=== PATIENT | female | born 1985 | race Caucasian/White ===

== ENCOUNTER 2023-12-25 09:38 | Day surgery (SDC) | payer BC ==
[2023-12-19 13:39] LABS: BASOPHILS # (AUTO) 0.1 K/uL (0.0-0.2); EOSINOPHILS # (AUTO) 0.2 K/uL (0.0-0.4); EOSINOPHILS % (AUTO) 2.2 % (0.0-4.0); HEMATOCRIT 41.7 % (36-48); HEMOGLOBIN 14.4 g/dL (12.0-16.0); LYMPHOCYTES # (AUTO) 2.3 K/uL (1.0-5.5); LYMPHOCYTES % (AUTO) 26.8 % (20.5-51.5); MEAN CORPUSCULAR HEMOGLOBIN 30 pg (27-31); MEAN CORPUSCULAR HGB CONC 35 % (32-36); MEAN CORPUSCULAR VOLUME 88 fL (79.0-98.0); MONOCYTES # (AUTO) 0.7 K/uL (0.0-1.0); NEUTROPHILS # (AUTO) 5.2 K/uL (1.8-7.7); PLATELET COUNT (AUTO) 286 K/uL (130-430); RED BLOOD CELL COUNT(AUTO) 4.77 MIL/uL (4.2-6.2); RED CELL DISTRIBUTION WIDTH 13.6 % (9.0-15.0); WHITE BLOOD COUNT (AUTO) 8.4 K/uL (4.8-10.8)
[2023-12-19 14:29] LABS: CALCIUM 9.3 mg/dL (8.4-11.0); CREATININE 0.71 mg/dL (0.55-1.30); POTASSIUM 3.7 mmol/L (3.5-5.1); TOTAL BILIRUBIN 0.6 mg/dL (0.0-1.0); TOTAL PROTEIN, SERUM 7.5 g/dL (6.4-8.3)
[~2023-12-25] VITALS: Ht 154.9 cm; Wt 81.6 kg
[2023-12-25 10:50] LABS: HCG,QUAL RESULT NEGATIVE (NEGATIVE)
[2023-12-25] MEDS ORDERED: ACETAMINOPHEN I.V. 1000 MG 100 ML IV ONE (11:40)
[2023-12-25] MEDS ORDERED: fentaNYL CITRATE/PF 100 MCG/2 ML AMP ONE (11:40)
[2023-12-25] MEDS ORDERED: MIDAZOLAM HCL 2 MG/2 ML VIAL (VERSED) ONE (11:40)
[2023-12-25] MEDS ORDERED: ONDANSETRON HCL 4 MG/2 ML VIAL ONE (11:43)
[2023-12-25] MEDS ORDERED: SEVOFLURANE 15 MIN GAS INH ONE (11:43)
[2023-12-25] MEDS ORDERED: LR 1,000 ML IV.SOLN IV ONE (11:43)
[2023-12-25] MEDS ORDERED: PROPOFOL 200MG/ 20ML VIAL (DIPRIVAN) IV ONE (11:43)
[2023-12-25] MEDS ORDERED: NS IRRIG SOLN 1000 ML IR ONE (11:43)
[2023-12-25] MEDS ORDERED: DEXAMETHASONE SOD PHOSPHATE 4 MG/ML VIAL ONE (11:43)
[2023-12-25] MEDS ORDERED: KETOROLAC TROMETHAMINE 30 MG VIAL ONE (11:43)
[2023-12-25] MEDS ORDERED: LIDOCAINE/EPI 1% 1:100000 20 ML VIAL ONE (11:43)
[2023-12-25 11:45] VITALS: O2SAT 100
[2023-12-25] MEDS ORDERED: ONDANSETRON HCL 4 MG/2 ML VIAL IVP PRN (12:15)
[2023-12-25] MEDS ORDERED: fentaNYL CITRATE/PF 100 MCG/2 ML AMP IVP PRN ×2 (12:15)
[2023-12-25] MEDS ORDERED: LR 1,000 ML IV ONE (12:15)
[2023-12-25] MEDS ORDERED: HYDROmorphone 1 MG/ML INJ. CARTRIDGE ONE ×2 (13:16→14:42)
[2023-12-25] MEDS: HYDROmorphone 1 MG/ML INJ. CARTRIDGE IVP PRN (13:18)
[2023-12-25 15:46] VITALS: BP_SYST 120; PULSE 78; RESP 18; TEMP 98
== END 2023-12-25 15:32 | disposition home or self-care (01) ==
LOC: SDS 09:38 → SMU 09:42 → SDS 15:32
PROVIDERS: ATTEND Obstetrics & Gynecology
DX: Z30.2 Encounter for sterilization (principal); E05.90 Thyrotoxicosis, unspecified without thyrotoxic crisis or storm; E66.3 Overweight; Z88.0 Allergy status to penicillin; Z68.34 Body mass index [BMI] 34.0-34.9, adult; Z83.49 Family history of other endocrine, nutritional and metabolic diseases
CPT/HCPCS: 80053; 85025; 87081; 36415; 58670; 84703; J1100; J1885; J3465; J2405; J2704; J3010; J1170; J7120; J0131